=== PATIENT | male | born 1970 | race Caucasian/White ===

== ENCOUNTER 2018-12-19 11:38 | Emergency (ER) | payer MEDICAID, OTHER ==
[~2018-12-19] VITALS: Ht 175.3 cm; Wt 70.8 kg
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
--- NOTE | 2018-12-19 11:40 | NUR ---
[facility] at bedside for MSE
[2018-12-19] MEDS ORDERED: IBUPROFEN 600 MG TABLET PO ONE (11:45)
[2018-12-19] MEDS ORDERED: FLUORESCEIN SODIUM 1 MG STRIP OP ONE (11:45)
[2018-12-19] MEDS ORDERED: TETRACAINE HCL 0.5% OPHT DROP 2 ML BOTTLE OP ONE (11:45)
[2018-12-19] MEDS ORDERED: IBUP-1957 PO (11:48)
[2018-12-19] MEDS ORDERED: TETRACAINE HCL 0.5% OPHT DROP 2 ML BOTTLE ONE (11:50)
[2018-12-19] MEDS ORDERED: IBUPROFEN 600 MG TABLET ONE (11:50)
[2018-12-19] MEDS ORDERED: FLUORESCEIN SODIUM 1 MG STRIP ONE (11:50)
--- NOTE | 2018-12-19 11:51 | NUR ---
[facility] AT BEDSIDE.
--- NOTE | 2018-12-19 12:47 | NUR ---
Patient discharged to home in stable conditon. Written and verbal after care instructions given. Patient verbalizes understanding of instructions.
[2018-12-19 12:50] VITALS: BP 126/81
--- NOTE | 2018-12-19 12:51 | NUR ---
Calvin long in EDM - 12/19/18 at 1300 by DUANE Patient discharged to home in stable conditon. Written and verbal after care instructions given. Patient verbalizes understanding of instructions.
== END 2018-12-19 12:47 | disposition home or self-care (01) ==
LOC: ER 11:38
DX: H57.89 Other specified disorders of eye and adnexa (principal); G89.29 Other chronic pain; M25.562 Pain in left knee; Z79.1 Long term (current) use of non-steroidal anti-inflammatories (NSAID); Y04.2XXA Assault by strike against or bumped into by another person, initial encounter; Y93.89 Activity, other specified; Y92.89 Other specified places as the place of occurrence of the external cause; Y99.8 Other external cause status
CPT/HCPCS: A4663